=== PATIENT | female | born 1980 | race Caucasian/White ===

== ENCOUNTER 2019-06-20 04:55 | Inpatient (IN) | payer OTHER ==
[~2019-06-20] VITALS: Ht 152.4 cm; Wt 74.8 kg
[2019-06-20 04:55] VITALS: BP 152/90
[2019-06-20] MEDS ORDERED: ONDANSETRON 4 MG/2 ML VIAL IVP ONE (05:15)
[2019-06-20] MEDS ORDERED: MORPHINE SULFATE 4 MG/ML SYR IVP ONE (05:15)
[2019-06-20] MEDS ORDERED: NACL 0.9% 1,000 ML IV ONE ×2 (05:20→05:30)
[2019-06-20 05:52] LABS: HEMATOCRIT 46.2 % (36-48); HEMOGLOBIN 15.4 g/dL (12.0-16.0); MEAN CORPUSCULAR HEMOGLOBIN 29 pg (27-31); MEAN CORPUSCULAR HGB CONC 33 g/dL (33-37); MEAN CORPUSCULAR VOLUME 88.2 fL (80-94); PLATELET COUNT (AUTO) 248 K/uL (140-450); RED BLOOD CELL COUNT(AUTO) 5.23 MIL/uL (4.20-5.40); WHITE BLOOD COUNT (AUTO) 7.6 K/uL (4.8-10.8)
[2019-06-20 05:53] LABS: APPEARANCE,URINE CLOUDY (CLEAR); BILIRUBIN,URINE NEGATIVE (NEGATIVE); BLOOD, URINE 3+ (NEGATIVE); COLOR,URINE YELLOW (YELLOW); LEUKOCYTE ESTERASE ,URINE 1+ (NEGATIVE); NITRITE, URINE NEGATIVE (NEGATIVE); UGLUCOSE NEGATIVE (NEGATIVE)
[2019-06-20 06:06] LABS: RBC,URINE TOO NUMEROUS TO COUN /HPF (0-5); WBC,URINE TOO MANY TO COUNT /HPF (0-5)
[2019-06-20 06:07] LABS: ANION GAP 18.7 (8-16); CREATININE 0.9 mg/dL (0.6-1.3); POTASSIUM 3.7 mmol/L (3.5-5.1); TOTAL BILIRUBIN 0.4 mg/dL (0.0-1.0)
[2019-06-20] MEDS ORDERED: HYDROmorphone PFS 2 MG/ML SYR IVP ONE (06:15)
[2019-06-20 06:20] LABS: LYMPHOCYTES % (MANUAL) 15 % (20-46); MONOCYTES % (MANUAL) 4 % (5-12)
[2019-06-20] MEDS ORDERED: CABE0.5T1 PO (08:05)
[2019-06-20] MEDS ORDERED: NACL 0.9% 1,000 ML IV SCH (08:13)
[2019-06-20] MEDS ORDERED: ZOLPIDEM 5 MG TAB PO PRN (08:15)
[2019-06-20] MEDS ORDERED: HYDROcodone/APAP 5/325 MG 1 TAB TAB PO PRN (08:15)
[2019-06-20] MEDS ORDERED: DOCUSATE SODIUM 100 MG GELCAP PO PRN (08:15)
[2019-06-20] MEDS ORDERED: cefTRIAXone 1,000 MG VIAL ONE (08:16)
[2019-06-20] MEDS ORDERED: ALUMINUM HYD/MAG/SIMETHICONE 30 ML UDC PO SCH (08:45)
[2019-06-20 08:57] VITALS: BP 110/70
[2019-06-20] MEDS ORDERED: LIDOCAINE VISCOUS 2% 20 ML UDC PO SCH (09:00)
[2019-06-20] MEDS ORDERED: DICYCLOMINE HCL LIQUID 10 MG/5 ML UDC PO SCH (09:00)
[2019-06-20] MEDS ORDERED: APAP/BUTAL/CAFF 325/50/40 MG 1 TAB PO SCH (09:15)
[2019-06-20 10:05] LABS: PROTHROMBIN TIME 9.8 secs (10.8-13.4)
[2019-06-20 10:35] LABS: FREE T4 (FREE THYROXINE) 1.01 ng/dL (0.76-1.46); MAGNESIUM 2.1 mg/dL (1.8-2.4); PHOSPHORUS 1.8 mg/dL (2.5-4.9); THYROID STIMULATING HORMONE 2.63 uIU/mL (0.34-3.74)
[2019-06-20] MEDS ORDERED: POTASSIUM PHOSPHATE 15 MM in NACL 0.9% 250 ML IV SCH (12:00)
[2019-06-20] MEDS: DEXT 5% /NACL 0.9% 1,000 ML IV SCH ×2 (12:08→18:10)
[2019-06-20] MEDS: ACETAMINOPHEN 325 MG TAB PO PRN (12:13)
[2019-06-20] MEDS: PHENAZOPYRIDINE 100 MG TAB PO SCH ×2 (12:13→18:10)
[2019-06-20 16:00] VITALS: BP 117/63
[2019-06-20] MEDS: ONDANSETRON 4 MG/2 ML VIAL IM/IVP PRN (16:01)
[2019-06-20] MEDS: oxyCODONE/APAP 5/325 MG 1 TAB TAB PO PRN ×2 (16:01→22:04)
[2019-06-20] MEDS: metroNIDAZOLE 500 MG/NS PREMIX 100 ML IV SCH (20:37)
[2019-06-20] MEDS: DIPHENOXYLATE /ATROPINE 2.5 MG TAB PO PRN (23:19)
[2019-06-21] VITALS: BP 110/76
[2019-06-21] MEDS: DEXT 5% /NACL 0.9% 1,000 ML IV SCH ×3 (00:30→16:42)
[2019-06-21] MEDS: metroNIDAZOLE 500 MG/NS PREMIX 100 ML IV SCH ×3 (04:53→20:27)
[2019-06-21] MEDS: oxyCODONE/APAP 5/325 MG 1 TAB TAB PO PRN ×3 (05:03→19:38)
[2019-06-21 06:46] LABS: BASOPHILS % (AUTO) 0.8 % (0.0-2.0); EOSINOPHILS # (AUTO) 0.1 K/uL (0-0.4); EOSINOPHILS % (AUTO) 2.7 % (0.0-4.0); HEMATOCRIT 38.6 % (36-48); HEMOGLOBIN 12.8 g/dL (12.0-16.0); LYMPHOCYTES # (AUTO) 1.1 K/uL (2.5-16.5); LYMPHOCYTES % (AUTO) 36.6 % (20.5-51.1); MEAN CORPUSCULAR HEMOGLOBIN 29 pg (27-31); MEAN CORPUSCULAR HGB CONC 33 g/dL (33-37); MEAN CORPUSCULAR VOLUME 88.4 fL (80-94); MONOCYTES # (AUTO) 0.4 K/uL (0.8-1.0); NEUTROPHILS # (AUTO) 1.4 K/uL (1.8-7.7); NEUTROPHILS % (AUTO) 45.9 % (42.2-75.2); PLATELET COUNT (AUTO) 159 K/uL (140-450); RED BLOOD CELL COUNT(AUTO) 4.37 MIL/uL (4.20-5.40); RED CELL DISTRIBUTION WIDTH 13.2 % (11.6-13.7); WHITE BLOOD COUNT (AUTO) 3.1 K/uL (4.8-10.8)
[2019-06-21 07:16] LABS: CHOL/HDL RATIO 1.8 (1-4.5)
[2019-06-21 07:25] LABS: ANION GAP 12.9 (8-16); CARBON DIOXIDE 24.5 mmol/L (21-32); CREATININE 0.8 mg/dL (0.6-1.3); POTASSIUM 3.4 mmol/L (3.5-5.1)
[2019-06-21 08:00] VITALS: BP 98/63
[2019-06-21] MEDS: DIPHENOXYLATE /ATROPINE 2.5 MG TAB PO PRN (08:17)
[2019-06-21] MEDS: PHENAZOPYRIDINE 100 MG TAB PO SCH ×3 (08:17→17:26)
[2019-06-21] MEDS: ONDANSETRON 4 MG/2 ML VIAL IM/IVP PRN (08:53)
[2019-06-21] MEDS ORDERED: POTASSIUM CHLORIDE 10 MEQ TABER PO SCH (12:00)
[2019-06-21] MEDS ORDERED: DIPHENOXYLATE /ATROPINE 2.5 MG TAB PO SCH (13:00)
[2019-06-21 16:00] VITALS: BP 113/59
[2019-06-21] MEDS ORDERED: PROMETHAZINE 25 MG/ML VIAL IM PRN (16:10)
[2019-06-21] MEDS ORDERED: DICYCLOMINE HCL LIQUID 10 MG/5 ML UDC PO SCH (17:00)
[2019-06-21] MEDS ORDERED: KETOROLAC 15 MG/ML VIAL IVP SCH (17:00)
[2019-06-21] MEDS ORDERED: ALUMINUM HYD/MAG/SIMETHICONE 30 ML UDC PO SCH (17:00)
[2019-06-22] VITALS: BP 117/65
[2019-06-22] MEDS: DIPHENOXYLATE /ATROPINE 2.5 MG TAB PO PRN (02:34)
[2019-06-22] MEDS: DEXT 5% /NACL 0.9% 1,000 ML IV SCH ×4 (02:44→22:42)
[2019-06-22] MEDS: oxyCODONE/APAP 5/325 MG 1 TAB TAB PO PRN (02:51)
[2019-06-22] MEDS: metroNIDAZOLE 500 MG/NS PREMIX 100 ML IV SCH ×3 (05:14→20:21)
[2019-06-22 08:00] VITALS: BP 106/71
[2019-06-22] MEDS: DICYCLOMINE 10 MG CAP PO SCH ×4 (09:12→20:20)
[2019-06-22] MEDS: PHENAZOPYRIDINE 100 MG TAB PO SCH ×3 (09:12→17:36)
[2019-06-22 09:24] LABS: BASOPHILS % (AUTO) 0.9 % (0.0-2.0); EOSINOPHILS # (AUTO) 0.1 K/uL (0-0.4); EOSINOPHILS % (AUTO) 2.6 % (0.0-4.0); HEMATOCRIT 38.7 % (36-48); HEMOGLOBIN 12.9 g/dL (12.0-16.0); LYMPHOCYTES # (AUTO) 1.6 K/uL (2.5-16.5); LYMPHOCYTES % (AUTO) 52.4 % (20.5-51.1); MEAN CORPUSCULAR HEMOGLOBIN 29 pg (27-31); MEAN CORPUSCULAR HGB CONC 33 g/dL (33-37); MEAN CORPUSCULAR VOLUME 87.9 fL (80-94); MONOCYTES # (AUTO) 0.4 K/uL (0.8-1.0); MONOCYTES % (AUTO) 12.2 % (1.7-9.3); NEUTROPHILS % (AUTO) 31.9 % (42.2-75.2); PLATELET COUNT (AUTO) 183 K/uL (140-450); RED BLOOD CELL COUNT(AUTO) 4.41 MIL/uL (4.20-5.40); RED CELL DISTRIBUTION WIDTH 13.3 % (11.6-13.7); WHITE BLOOD COUNT (AUTO) 3.1 K/uL (4.8-10.8)
[2019-06-22 09:38] LABS: ALBUMIN 2.9 g/dL (3.4-5.0); ANION GAP 11.7 (8-16); CARBON DIOXIDE 27.2 mmol/L (21-32); CREATININE 0.9 mg/dL (0.6-1.3); POTASSIUM 3.9 mmol/L (3.5-5.1); TOTAL BILIRUBIN 0.1 mg/dL (0.0-1.0)
[2019-06-22] MEDS ORDERED: DIPHENOXYLATE /ATROPINE 2.5 MG TAB PO SCH (13:09)
[2019-06-22] MEDS: ACETAMINOPHEN 325 MG TAB PO PRN (13:34)
[2019-06-22 16:00] VITALS: BP 105/57
[2019-06-23] VITALS: BP 94/63
[2019-06-23] MEDS: ACETAMINOPHEN 325 MG TAB PO PRN (00:01)
[2019-06-23] MEDS: metroNIDAZOLE 500 MG/NS PREMIX 100 ML IV SCH (04:37)
[2019-06-23] MEDS: DEXT 5% /NACL 0.9% 1,000 ML IV SCH (04:38)
[2019-06-23 08:00] VITALS: BP 100/52
[2019-06-23] MEDS: DICYCLOMINE 10 MG CAP PO SCH (08:33)
[2019-06-23] MEDS ORDERED: BEN10 PO (08:38)
[2019-06-23] MEDS ORDERED: CEPH250C16 PO (08:44)
== END 2019-06-23 10:53 | disposition home or self-care (01) | DRG 690 ==
LOC: MED 04:55 → EEVIPCON 04:55 → MTU 08:13
PROVIDERS: ADMIT General Practice; ATTEND General Practice
DX: N12 Tubulo-interstitial nephritis, not specified as acute or chronic (principal); E44.0 Moderate protein-calorie malnutrition; A08.4 Viral intestinal infection, unspecified; E66.01 Morbid (severe) obesity due to excess calories; Z68.32 Body mass index [BMI] 32.0-32.9, adult; E78.5 Hyperlipidemia, unspecified; E86.0 Dehydration
CPT/HCPCS: 36415; 74018; 80048; 80053; 81001; 82150; 82272; 83036; 83605; 83690; 83735; 83880; 84100; 84134; 84439; 84443; 84484; 84703; 85025; 85610; 85730; 87040; 87045; 87070; 87081; 87086; 89055; 96361; 96365; 96375; 99285; J0696; J1170; J1885; J2270; J2405; J2550; J3490; J7030; J7042; J7060; Q9967

== ENCOUNTER 2019-08-06 11:14 | Outpatient (CLI) | payer OTHER ==
[~2019-08-06 11:14] MED LIST: BEN10 PO; CABE0.5T1 PO; CEPH250C16 PO
== END 2019-08-06 21:33 | disposition home or self-care (01) ==
LOC: MLB 11:14 → MUS 21:33
DX: I42.9 Cardiomyopathy, unspecified (principal); R74.8 Abnormal levels of other serum enzymes; Z90.49 Acquired absence of other specified parts of digestive tract
CPT/HCPCS: 71046; 76700

== ENCOUNTER 2019-08-07 06:48 | Outpatient (CLI) | payer OTHER | END 2019-08-15 21:12 | disposition home or self-care (01) | LOC: MUS 06:48 | DX: R74.8 Abnormal levels of other serum enzymes (principal); Z90.49 Acquired absence of other specified parts of digestive tract | CPT/HCPCS: 76700 ==

== ENCOUNTER 2019-11-08 20:11 | Emergency (ER) | payer OTHER, SELFPAY ==
[~2019-11-08] VITALS: Ht 152.4 cm; Wt 74.8 kg
[2019-11-08 20:25] VITALS: BP 100/45
--- NOTE | 2019-11-08 20:25 | NUR ---
PT 39 Y/O FEMALE BIB SELF FOR C/O SOB, AND FEVER X 2 HOURS. CRACKLES NOTED IN BILAT UPPER LOBES, COUGH NOTED NON-PRODUCTIVE. O2 SAT @ 98% ON RA. NAUSEA NOTED. DENIES EPIDOSE OF VOMITING. PT TEMP: 100.4. GENERALIZED BODY ACHES 9/10. MEDHX: PITUITARY TUMOR ALLERGIES: NONE
--- NOTE | 2019-11-08 20:33 | NUR ---
PT TRIAGED AND WAITING TO BE ASSESSED BY ERMD.
--- NOTE | 2019-11-08 20:50 | NUR ---
ERMD ANU TO TENT TO EVALUATE PT
[2019-11-08] MEDS ORDERED: ACETAMINOPHEN EXTRA STRENGTH 500 MG TAB PO ONE (21:00)
--- NOTE | 2019-11-08 21:08 | NUR ---
EKG BEING PERFORMED AT BEDSIDE.
--- NOTE | 2019-11-08 21:10 | NUR ---
PT TAKEN TO XRAY VIA W/C.
--- NOTE | 2019-11-08 21:20 | NUR ---
COVID SWAB COLLECTED AND SENT TO LAB.
[2019-11-08 21:50] VITALS: BP 102/55
--- NOTE | 2019-11-08 22:00 | NUR ---
Patient discharged with v/s stable. Written and verbal after care instructions given and explained. Patient alert, oriented and verbalized understanding of instructions. Ambulatory with steady gait. All questions addressed prior to discharge. ID band removed. Patient advised to follow up with PMD. Rx of ZOFRAN ODT, IBUPROFEN, ROBITUSSIN given. Patient educated on indication of medication including possible reaction and side effects. Opportunity to ask questions provided and answered.
== END 2019-11-08 22:00 | disposition home or self-care (01) ==
LOC: MED 20:11
DX: U07.1 COVID-19 (principal); B34.9 Viral infection, unspecified; D35.2 Benign neoplasm of pituitary gland; Z79.899 Other long term (current) drug therapy
CPT/HCPCS: 71045; 93005; 99284; U0003

== ENCOUNTER 2019-11-09 07:31 | Emergency (ER) | payer OTHER, SELFPAY ==
[~2019-11-09] VITALS: Ht 152.4 cm; Wt 73.7 kg
[2019-11-09 07:37] VITALS: BP 142/76
[2019-11-09] MEDS ORDERED: KETOROLAC 30 MG/ML VIAL IVP ONE (07:55)
[2019-11-09] MEDS ORDERED: NACL 0.9% 1,000 ML IV ONE (07:55)
--- NOTE | 2019-11-09 07:58 | NUR ---
PT MOVED TO BED 8 PER ERMD
--- NOTE | 2019-11-09 08:00 | NUR ---
39 YO FEMALE SEEN YESTERDAY IN OUR ER--SYMPTOMS HAVE WORSEN C/O DEBILITATING BODYACHES WITH A STRONG HACKING COUGH, F/C, N/V, AND CHEST TIGHTNESS--- UNABLE TO SLEEP ALL NIGHT 2 TO COUGHING
--- NOTE | 2019-11-09 08:24 | NUR ---
LAB DRAWN AND URINE GIVEN. TAKEN TO LAB
[2019-11-09 08:46] LABS: BASOPHILS % (AUTO) 0.5 % (0.0-2.0); EOSINOPHILS # (AUTO) 0.1 K/uL (0-0.4); EOSINOPHILS % (AUTO) 1.9 % (0.0-4.0); HEMOGLOBIN 14.6 g/dL (12.0-16.0); LYMPHOCYTES # (AUTO) 1.6 K/uL (2.5-16.5); LYMPHOCYTES % (AUTO) 41.3 % (20.5-51.1); MEAN CORPUSCULAR HEMOGLOBIN 30 pg (27-31); MEAN CORPUSCULAR HGB CONC 34 g/dL (33-37); MEAN CORPUSCULAR VOLUME 87.8 fL (80-94); MONOCYTES # (AUTO) 0.5 K/uL (0.8-1.0); MONOCYTES % (AUTO) 13.1 % (1.7-9.3); NEUTROPHILS # (AUTO) 1.6 K/uL (1.8-7.7); NEUTROPHILS % (AUTO) 43.2 % (42.2-75.2); PLATELET COUNT (AUTO) 221 K/uL (140-450); RED BLOOD CELL COUNT(AUTO) 4.89 MIL/uL (4.20-5.40); RED CELL DISTRIBUTION WIDTH 13.1 % (11.6-13.7); WHITE BLOOD COUNT (AUTO) 3.8 K/uL (4.8-10.8)
[2019-11-09 09:08] LABS: APPEARANCE,URINE CLEAR (CLEAR); BILIRUBIN,URINE 1+ (NEGATIVE); BLOOD, URINE 2+ (NEGATIVE); COLOR,URINE YELLOW (YELLOW); LEUKOCYTE ESTERASE ,URINE NEGATIVE (NEGATIVE); NITRITE, URINE NEGATIVE (NEGATIVE); UGLUCOSE NEGATIVE (NEGATIVE)
[2019-11-09 09:19] LABS: ALBUMIN 3.9 g/dL (3.4-5.0); ANION GAP 17.8 (8-16); CARBON DIOXIDE 20.1 mmol/L (21-32); CREATININE 0.9 mg/dL (0.6-1.3); POTASSIUM 3.9 mmol/L (3.5-5.1); TOTAL BILIRUBIN 0.3 mg/dL (0.0-1.0)
[2019-11-09 09:20] LABS: RBC,URINE 0-5 /HPF (0-5); WBC,URINE 0-5 /HPF (0-5)
[2019-11-09 09:43] VITALS: BP 142/76
== END 2019-11-09 09:44 | disposition home or self-care (01) ==
LOC: MED 07:31
DX: B34.9 Viral infection, unspecified (principal); Z79.899 Other long term (current) drug therapy; Z98.890 Other specified postprocedural states
CPT/HCPCS: 36415; 80053; 81001; 85025; 96361; 96374; 99283; J1885; J7030